=== PATIENT | female | born 1955 ===

== ENCOUNTER 2024-11-20 07:57 | Outpatient (CLI) | payer OTHER | END 2024-11-20 08:05 | disposition home or self-care (01) | LOC: SONOGRAMA 07:57 | PROVIDERS: ATTEND Physical Medicine & Rehabilitation Hospice and Palliative Medicine | DX: M25.512 Pain in left shoulder (principal); M75.52 Bursitis of left shoulder; M75.32 Calcific tendinitis of left shoulder ==